=== PATIENT | female | born 1960 | race Caucasian/White ===

== ENCOUNTER → 2020-04-07 13:32 | Outpatient (CLI) | payer BC, SELFPAY ==
--- NOTE | ~2020-04-07 | MM_ITS ---
EXAMINATION: MM screening sharda BI w niko HISTORY: Screening TECHNIQUE: Craniocaudal and mediolateral oblique 3-D tomosynthesis images were obtained and synthetic 2-D images were generated. CAD analysis was submitted and interpreted. COMPARISON: Comparison to multiple prior studies sequentially, with oldest reviewed study dated 11/12. BREAST PARENCHYMAL COMPOSITION: There are scattered areas of fibroglandular density. FINDINGS: There is no evidence of suspicious mass, calcification, or architectural distortion to sugg est malignancy in either breast. There has been no suspicious interval change. IMPRESSION: 1. No mammographic evidence of malignancy. 2. Recommend routine screening mammography in one year. BI-RADS Category 1: Negative Reviewed, dictated and finalized at location A. 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
== END ==
PROVIDERS: PCP Family Medicine; Visit Provider Family Medicine
DX: Z12.31 Encounter for screening mammogram for malignant neoplasm of breast (principal)
CPT/HCPCS: 77063; 77067

== ENCOUNTER → 2020-08-21 08:00 | Outpatient (CLI) | payer BC, SELFPAY ==
--- NOTE | ~2020-08-21 | US_ITS ---
US abdomen complete DATE: 08/21/2020 08:30 INDICATION: Abnormal liver enzymes. Chemical hepatitis. Abdominal bloating. TECHNIQUE: Real-time imaging and Doppler analysis of the abdomen COMPARISON: None FINDINGS: Inferior vena cava is unremarkable. Normal caliber of the abdominal aorta. The pancreas is partially obscured by bowel gas and not optimally evaluated; consider CT examination. No hepatic space-occupying mass lesion is evident. Normal hepatopedal portal venous flow direction. Common bile duct measures up to 7 to 8 mm, which is borderline. No gallstones or gallbladder wall thi ckening. Negative sonographic Mistry's sign. Right kidney measures 8.6 cm length, left kidney 9.6 cm. No renal mass lesion or hydronephrosis is ev ident. Normal splenic size. IMPRESSION: Negative gallbladder Common bile duct measures 7 to 8 mm, which is borderline or mildly dilated. Recommend correlation wit h serum bilirubin level. Pancreas is not optimally evaluated due to interference from bowel gas. Reviewed, dictated and finalized at Location A. Reviewed, dictated and finalized at location A. IMPRESSION: Negative gallbladder Common bile duct measures 7 to 8 mm, which is borderline or mildly dilated. Rec ommend correlation with serum bilirubin level. Pancreas is not optimally evaluated due to interference from bowel gas.
== END ==
DX: K71.6 Toxic liver disease with hepatitis, not elsewhere classified (principal); R74.8 Abnormal levels of other serum enzymes; R14.0 Abdominal distension (gaseous)
CPT/HCPCS: 76700

== ENCOUNTER → 2021-07-06 08:28 | Outpatient (CLI) | payer BC, SELFPAY ==
--- NOTE | ~2021-07-06 | US_ITS ---
EXAMINATION: US abdomen complete DATE: 07/06/2021 08:49 INDICATION: Left lower quadrant abdominal pain. Abnormal levels of serum enzyme. TECHNIQUE: Multiple grayscale and Doppler ultrasound images of the abdomen were obtained. COMPARISON: Abdomen ultrasound 08/21/2020 FINDINGS: Abdominal aorta is normal in caliber. Inferior vena cava is normal. The visualized portions of the head and body of the pancreas are normal. The liver is normal without focal lesion. No liver surface nodularity. There is normal flow in main portal vein. The gallbladder is normal in size and c ontains sludge. No gallstones or gallbladder wall thickening. There was no sonographic Mistry sign. T he common duct is dilated to 8 mm. Right kidney measures 8.7 x 3.6 x 4.4 cm. Left kidney measures 8.6 x 4.2 x 4.6 cm. The spleen is normal in size. IMPRESSION: 1. Mildly dilated common duct, stable from 08/21/2020. 2. Gallbladder sludge. No evidence of acute cholecystitis. 3. Mild atrophy of the kidneys. Reviewed, dictated and finalized at location A. 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
== END ==
DX: K83.8 Other specified diseases of biliary tract (principal); R74.8 Abnormal levels of other serum enzymes; R10.32 Left lower quadrant pain
CPT/HCPCS: 76700

== ENCOUNTER → 2021-07-22 10:09 | Outpatient (CLI) | payer BC, SELFPAY ==
--- NOTE | ~2021-07-22 | MM_ITS ---
EXAMINATION: MM screening sharda BI w niko HISTORY: Screening mammogram TECHNIQUE: Craniocaudal and mediolateral oblique 3-D tomosynthesis images were obtained and synthetic 2-D images were generated. CAD analysis was submitted and interpreted. COMPARISON: 04/07/2020, 01/23/2019 bilateral screening mammogram examinations 02/04/2019 diagnostic right mammogram and limited right breast ultrasound BREAST PARENCHYMAL COMPOSITION: There are scattered areas of fibroglandular density. FINDINGS: There is no evidence of suspicious mass, calcification, or architectural distortion to sugg est malignancy in either breast. There has been no suspicious interval change. IMPRESSION: 1. No mammographic evidence of malignancy. 2. Recommend routine screening mammography in one year. BI-RADS Category 1: Negative Reviewed, dictated and finalized at location A.
== END ==
PROVIDERS: Visit Provider Family Medicine
DX: Z12.31 Encounter for screening mammogram for malignant neoplasm of breast (principal)
CPT/HCPCS: 77063; 77067

== ENCOUNTER → 2022-03-07 12:44 | Outpatient (CLI) | payer BC, SELFPAY ==
--- NOTE | ~2022-03-07 | US_ITS ---
EXAMINATION: US thyroid DATE: 03/07/2022 13:17 INDICATION: Nodular thyroid, cervical lymphadenopathy. TECHNIQUE: Multiple ultrasound images of the thyroid were obtained. COMPARISON: None. FINDINGS: The right thyroid lobe measures 4.3 x 1.4 x 1.2 cm. The left thyroid lobe measures 3.8 x 0.7 x 1.0 c m. There is heterogeneous echotexture and echogenicity throughout the thyroid gland. No discrete nod ules identified. Normal vascular flow is present. IMPRESSION: 1. Heterogeneous thyroid parenchyma. 2. No focal nodule detected. Reviewed, dictated and finalized at location K. 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
== END ==
PROVIDERS: PCP Family Medicine
DX: E04.2 Nontoxic multinodular goiter (principal); L04.0 Acute lymphadenitis of face, head and neck
CPT/HCPCS: 76536

== ENCOUNTER → 2022-08-22 09:14 | Outpatient (CLI) | payer BC, SELFPAY ==
--- NOTE | ~2022-08-22 | US_ITS ---
EXAMINATION: US abdomen limited DATE: 08/22/2022 09:34 INDICATION: Unspecified abdominal pain. TECHNIQUE: Multiple grayscale and Doppler ultrasound images of the abdomen were obtained. COMPARISON: Ultrasound 07/06/2021 FINDINGS: The pancreas is obscured by bowel gas. The liver is normal without focal lesion. There is n ormal flow in main portal vein. The gallbladder is normal in size. No gallstones or gallbladder wall thickening. There was no sonographic Mistry sign. The common duct is mildly dilated and measures 7 mm . IMPRESSION: 1. Chronic mild dilatation of the common duct. Reviewed, dictated and finalized at location A.
== END ==
PROVIDERS: PCP Family Medicine; Visit Provider Physician Assistant Medical
DX: R10.9 Unspecified abdominal pain (principal)
CPT/HCPCS: 76705

== ENCOUNTER → 2022-09-06 08:23 | Outpatient (CLI) | payer BC, SELFPAY ==
--- NOTE | ~2022-09-06 | XR_ITS ---
XR abdomen/kub 1V 09/06/2022 08:42 INDICATION: Left flank pain TECHNIQUE: KUB COMPARISON: None FINDINGS: Bowel gas pattern is normal. Moderate colonic fecal loading. There is no evidence of free a ir, mass, organomegaly, ascites or obstruction. No abnormal calculi are seen. The bones appear inta ct. IMPRESSION: 1: No acute abdominal abnormality identified. Reviewed, dictated and finalized at location L.
--- NOTE | ~2022-09-06 | CT_ITS ---
Non-contrast CT scan of the Abdomen and Pelvis Clinical indication: Left flank pain Technique: 2.5 mm axial scans were obtained through the abdomen and pelvis without intravenous or or al contrast. Dose reduction technique was used on this scan by utilizing automated exposure control a nd iterative reconstruction technique. The dose-length product (DLP) was 278.76 mGy-cm. Findings: Images through the lung bases reveal no abnormalities. There is no evidence of renal or ureteral calculi. The kidneys and the ureters are nondilated. The liver, spleen, pancreas, gallbladder, and adrenals appear normal. There is no aortic aneurysm. There is no evidence of bowel obstruction. Normal appendix. Images through the pelvis were performed. There is no evidence of ascites or lymphadenopathy. Urinary bladder unremarkable. No adnexal mass evident. No ascites. Impression: No significant abnormality seen. Reviewed, dictated and finalized at [facility]. Impression: No significant abnormality seen.
== END ==
PROVIDERS: PCP Family Medicine; Visit Provider Nurse Practitioner Family
DX: R10.9 Unspecified abdominal pain (principal)
CPT/HCPCS: 74018; 74176

== ENCOUNTER → 2022-10-13 10:23 | Outpatient (CLI) | payer BC, SELFPAY ==
--- NOTE | ~2022-10-13 | MM_ITS ---
EXAMINATION: MM screening sharda BI w niko HISTORY: Screening mammogram TECHNIQUE: Craniocaudal and mediolateral oblique 3-D tomosynthesis images were obtained and synthetic 2-D images were generated. CAD analysis was submitted and interpreted. COMPARISON: 07/18/2021, 04/07/2020 bilateral screening mammogram examinations BREAST PARENCHYMAL COMPOSITION: There are scattered areas of fibroglandular density. FINDINGS: There is no evidence of suspicious mass, calcification, or architectural distortion to sugg est malignancy in either breast. There has been no suspicious interval change. IMPRESSION: 1. No mammographic evidence of malignancy. 2. Recommend routine screening mammography in one year. BI-RADS Category 1: Negative Reviewed, dictated and finalized at location A.
== END ==
PROVIDERS: PCP Family Medicine
DX: Z12.31 Encounter for screening mammogram for malignant neoplasm of breast (principal)
CPT/HCPCS: 77063; 77067

== ENCOUNTER 2023-09-28 09:14 | Outpatient (CLI) | payer BC, SELFPAY ==
--- NOTE | ~2023-09-28 | US_ITS ---
Abdominal Sonogram: Real-time sonographic imaging of the abdomen was performed. Clinical History: Abnormal liver enzymes Findings: The liver appears normal with no evidence of mass lesion or bile duct dilatation. Main por brandon vein demonstrates normal direction of flow. The spleen is normal in size without evidence of foca l lesion. The gallbladder is well distended, and appears normal with no evidence of gallstone or wal l thickening. The common bile duct measures 7 mm. The visualized pancreas, aorta, and IVC are unrema rkable. The right kidney measures 9.4 cm in length and the left kidney measures 9.3 cm. There is no hydronephrosis or renal calculus. Impression: Unremarkable abdominal ultrasound. Reviewed, dictated and finalized at location . Impression: Unremarkable abdominal ultrasound.
== END 2023-09-28 09:15 ==
PROVIDERS: PCP Family Medicine
DX: R74.8 Abnormal levels of other serum enzymes (principal); R94.4 Abnormal results of kidney function studies
CPT/HCPCS: 76700

== ENCOUNTER 2023-11-07 02:46 | Day surgery (SDC) | payer BC, SELFPAY ==
[2023-10-26 09:52] VITALS: BMI 22.3
[2023-11-07 07:09] VITALS: BP 138/78; PULSE 82; RESP 16; TEMP 36.1; O2SAT 99
[2023-11-07] MEDS: LACTATED RINGERS 1,000 ML 150 ML IV CONT (07:23)
--- NOTE | 2023-11-07 07:39 | WPDANESEPPF ---
Anes - Initial Pre Proc Eval Procedure: Operation Date: 11/07/23 08:30 Proposed Procedures p Screening Colonoscopy - Brett Bhatt DO Date/Time: 11/07/23 07:39 Surgeon: Brett Bhatt DO Pre Op Diagnosis: neoplasm screening Patient Data Age: 63 Gender: F Height: 1.63 m Weight: 58 kg Last Vital Signs Temp 97 F L 11/07/23 07:09 Pulse 82 11/07/23 07:09 Resp 16 11/07/23 07:09 BP 138/78 11/07/23 07:09 Pulse Ox 99 11/07/23 07:09 O2 Del Method Room Air 11/07/23 07:09 Allergies Allergy/AdvReac Type Severity Reaction Status Date / Time Penicillins Allergy Unknown unknown Verified 11/07/23 07:08 Sulfa (Sulfonamide Allergy Unknown unknown Verified 11/07/23 07:08 Antibiotics) Home Medications Medication Instructions Recorded Confirmed Type levothyroxine 50 mcg tablet 50 mcg PO DAILY #30 tabs 08/21/23 10/26/23 Rx ergocalciferol (vitamin D2) 1,250 1,250 PO 10/26/23 History mcg (50,000 unit) capsule (Vitamin D2) potassium chloride 10 mEq 10 meq PO DAILY 10/26/23 10/26/23 History tablet,extended release(part/cryst) Patient hx anesthesia problems: none Family hx anesthesia problems: none Results Review: All pre-operative results and documents have been reviewed as part of the pre-operative evaluation. [facility] Past Medical History Medical History Colon cancer screening Elevated liver enzymes Hypothyroidism Metatarsalgia of left foot Family History Family History Mother Diabetes mellitus Family history of hypercholesterolemia Hypertension Family history of pancreatic cancer, Onset Age: 90 Father Family history of hypercholesterolemia Family history of coronary artery disease Other Family history of cardiovascular disease Family history of malignant neoplasm Social History Social History Smoking status: Never smoker Alcohol intake: never Substance use: never Substance use type: does not use Lack of Transportation: No Lack of Food: Never True Current Housing: I Have Housing Concerned About Future Housing: No Difficulty Paying Gas/Electric Bills: No Difficulty Paying for Meds: No Currently Unemployed: No Education: High School Diploma/GED Difficulty w/ Childcare or Family Care: No Living arrangements: with family Spiritual care concerns: No Agree to blood products: Yes Anes - Eval Final PreProcedure Day of Procedure 11/07/23 07:39 Patient weight: normal Heart: regular rate and rhythm Lungs: clear to auscultation Airway: Mallampati scale class II Neurological: alert and oriented Last oral intake: >/= 8 hours ASA classification: II Emergent: no Anesthetic plan: proceed Anesthesia type and monitoring: general GIVS and standard monitoring Results Review: All pre-operative results and documents have been reviewed as part of the pre-operative evaluation. Informed Consent: The patient's anesthetic plan and its attendant risks and benefits were discussed with the patient/family/POA. Questions were solicited and answers provided to the satisfaction of the patient/family/POA.
--- NOTE | 2023-11-07 08:50 | PM.IMHP ---
H&P: HPI History of Present Illness Date/Time: 11/07/23 08:50 Chief Complaint: Screening for colorectal cancer Narrative: 63 yo woman presents for colonoscopy. Last done 20 years ago. Denies fam hx colon cancer. Denies hematochezia or melena. Review of Systems Review of Systems: All systems reviewed & are unremarkable except as noted in HPI and below Constitutional: Constitutional: Denies chills, Denies fever(s), Denies headache(s) and Denies weight loss Eyes: Eyes: Denies change in vision ENT: Denies dizziness, Denies headache(s), Denies neck mass and Denies throat swelling Cardiovascular: Cardiovascular: Denies chest pain, Denies lightheadedness and Denies dyspnea Respiratory: Respiratory: Denies cough, Denies dyspnea and Denies wheezing Gastrointestinal: Gastrointestinal: Denies abdominal pain, Denies change in bowel habits, Denies nausea and Denies vomiting Genitourinary: Genitourinary: Denies hematuria and Denies dysuria Musculoskeletal: Musculoskeletal: Reports as per HPI Integumentary/Breasts: Skin/Breast: Reports as per HPI Neurologic: Denies dizziness and Denies headache(s) Allergic/Immunologic: Allergic/Immunologic: Denies throat swelling and Denies wheezing [facility] Past Medical History Medical History Colon cancer screening Elevated liver enzymes Hypothyroidism Metatarsalgia of left foot Family History Family History Mother Diabetes mellitus Family history of hypercholesterolemia Hypertension Family history of pancreatic cancer, Onset Age: 90 Father Family history of hypercholesterolemia Family history of coronary artery disease Other Family history of cardiovascular disease Family history of malignant neoplasm Social History Social History Smoking status: Never smoker Alcohol intake: never Substance use: never Substance use type: does not use Lack of Transportation: No Lack of Food: Never True Current Housing: I Have Housing Concerned About Future Housing: No Difficulty Paying Gas/Electric Bills: No Difficulty Paying for Meds: No Currently Unemployed: No Education: High School Diploma/GED Difficulty w/ Childcare or Family Care: No Living arrangements: with family Spiritual care concerns: No Agree to blood products: Yes Meds Home Medications and Allergies Home Medications Medication Instructions Recorded Confirmed Type levothyroxine 50 mcg tablet 50 mcg PO DAILY #30 tabs 08/21/23 10/26/23 Rx ergocalciferol (vitamin D2) 1,250 1,250 PO 10/26/23 History mcg (50,000 unit) capsule (Vitamin D2) potassium chloride 10 mEq 10 meq PO DAILY 10/26/23 10/26/23 History tablet,extended release(part/cryst) Allergies Allergy/AdvReac Type Severity Reaction Status Date / Time Penicillins Allergy Unknown unknown Verified 11/07/23 07:08 Sulfa (Sulfonamide Allergy Unknown unknown Verified 11/07/23 07:08 Antibiotics) Vital Signs Vital Signs - 24 hr 11/07/23 07:09 Temperature 36.1 C L Pulse Rate 82 Respiratory Rate 16 Blood Pressure 138/78 Pulse Oximetry 99 Oxygen Delivery Room Air Exam Const: General: no acute distress and alert Orientation/consciousness: patient oriented x3 HENMT: Head: normocephalic and atraumatic Ears: hearing grossly normal bilaterally Face/Nose/Sinus: Normal nares present Mouth: Yes Normal oral and palatal mucosa present Eyes: Periorbital: periorbital findings normal Sclera: sclerae normal EOM: EOMs intact bilaterally Neck: Neck: normal visual inspection, no lymphadenopathy and trachea midline Chest: Chest palpation & inspection: normal inspection of the chest Resp: Effort & Inspection: normal respiratory effort Auscultation: clear to auscultation bilaterally Cardio: Jugular venous distensio
[2023-11-07 09:12] VITALS: BP 116/86; PULSE 103; RESP 21; O2SAT 100
[2023-11-07 09:22] VITALS: BP 123/76; PULSE 78; RESP 18; O2SAT 100
[2023-11-07 09:32] VITALS: BP 120/76; PULSE 78; RESP 18; O2SAT 100
== END 2023-11-07 09:40 | disposition home or self-care (01) ==
PROVIDERS: PCP Family Medicine; Visit Provider Surgery
PROC: 0DJD8ZZ Inspection of Lower Intestinal Tract, Via Natural or Artificial Opening Endoscopic (ICD-10-PCS; CPT 45378; principal; 2023-11-07 08:30)
DX: Z12.11 Encounter for screening for malignant neoplasm of colon (principal); K57.30 Diverticulosis of large intestine without perforation or abscess without bleeding; E03.9 Hypothyroidism, unspecified
CPT/HCPCS: 45378; J2704; J7120

== ENCOUNTER 2023-12-04 12:23 | Outpatient (CLI) | payer BC, SELFPAY ==
--- NOTE | ~2023-12-04 | MM_ITS ---
EXAMINATION: MM screening sharda BI w niko HISTORY: Screening TECHNIQUE: Craniocaudal and mediolateral oblique 3-D tomosynthesis images were obtained and synthetic 2-D images were generated. CAD analysis was submitted and interpreted. COMPARISON: Comparison to multiple prior studies sequentially, with oldest reviewed study dated 11/12. BREAST PARENCHYMAL COMPOSITION: Not dense: There are scattered areas of fibroglandular density. FINDINGS: There is no evidence of suspicious mass, calcification, or architectural distortion to sugg est malignancy in either breast. There has been no suspicious interval change. IMPRESSION: 1. No mammographic evidence of malignancy. 2. Recommend routine screening mammography in one year. BI-RADS Category 1: Negative Reviewed, dictated and finalized at location B.
== END 2023-12-04 12:24 ==
PROVIDERS: PCP Family Medicine; Visit Provider Family Medicine
DX: Z12.31 Encounter for screening mammogram for malignant neoplasm of breast (principal)
CPT/HCPCS: 77063; 77067

== ENCOUNTER 2024-07-23 07:44 | Outpatient (CLI) | payer BC, SELFPAY ==
--- NOTE | ~2024-07-23 | US_ITS ---
EXAMINATION: US abdomen complete DATE: 07/23/2024 08:31 INDICATION: Abn pancreatic enzymes TECHNIQUE: Multiple grayscale and Doppler ultrasound images of the abdomen were obtained. COMPARISON: 09/28/2023; CT abdomen pelvis 09/06/2022. FINDINGS: The pancreas was poorly visualized. The liver is normal with normal echogenicity and echote xture. No surface nodularity. Normal hepatopetal flow in the main portal vein. The gallbladder is nor mal with no abnormal wall thickening, pericholecystic fluid or stones. The common bile duct measures 8 mm. There was no sonographic Mistry sign. Aorta poorly visualized. The visualized portions of the i nferior vena cava are normal. The right kidney measures 9.8 x 4.6 x 5.0 cm. The left kidney measures 8.9 x 4.3 x 4.8 cm. The kidney s demonstrate normal parenchymal echogenicity. There is no hydronephrosis. The spleen is normal in ap pearance and measures 7.5 cm. IMPRESSION: The pancreas and aorta were poorly visualized in this examination. 8 mm common bile duct, correlate w ith biliary labs. Consider pancreatic protocol CT or MRI without and with contrast for further evalua tion. Reviewed, dictated and finalized at location K. IMPRESSION: The pancreas and aorta were poorly visualized in this examination. 8 mm common bile duct, correlate with biliary labs. Consider pancreatic protocol CT or MRI without and with contrast for further evaluation.
== END 2024-07-23 07:45 | disposition home or self-care (01) ==
LOC: MICIMG 07:45
PROVIDERS: PCP Family Medicine
DX: R74.8 Abnormal levels of other serum enzymes (principal); K83.8 Other specified diseases of biliary tract; Z80.0 Family history of malignant neoplasm of digestive organs
CPT/HCPCS: 76700

== ENCOUNTER 2024-12-03 08:36 | Outpatient (CLI) | payer BC, SELFPAY ==
--- NOTE | ~2024-12-03 | MR_ITS ---
MRI of the abdomen: Clinical indication: Other specified disease of biliary tract. Technique: Coronal SSFSE ARC, WATER:coronal LAVA-FLEX, Coronal 2D FIESTA FatSat, Axial SSFSE BH ARC, Axial 3D DualEcho BH, Axial SSFSE-IR, Axial DWI b=500, Axial 2D FIESTA FatSat, pre and dynamic postco ntrast Axial LAVA ARC, postcontrast Coronal In and Opposed phase LAVA FLEX. Following intravenous adm inistration of 12 cc MultiHance gadolinium, T1-weighted fat-sat imaging was performed in the axial an d coronal planes. Findings: Gallbladder is unremarkable. The common bile duct is mildly dilated proximally to 9 mm. The re is smooth distal tapering.. No filling defects are seen within the CBD. No evidence of intrahepati c biliary ductal dilatation. The pancreatic duct is normal in size. Liver, spleen, pancreas, adrenals, kidneys appear normal. The aorta and the paraaortic regions appear normal. No abnormal postcontrast enhancement seen. Impression: Mildly dilated common bile duct, nonspecific. Correlate with LFTs. No other significant findings. Reviewed, dictated and finalized at [facility]. Impression: Mildly dilated common bile duct, nonspecific. Correlate with LFTs. No other significant findings.
--- OUTSIDE RECORDS SUMMARY | 2024-12-03 08:43 | XMS_ITS | Clinical Summary ---
Author Organization [facility] Address [address] 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 This disclosure is being madepursuant to the Care Everywhere program and may not contain all information available regarding this patient. Last updated 18.[facility] Allergies Active Allergy Reactions Criticality Noted Date Comments Penicillins Unknown 07/27/2018 Medications * Be aware that medications may not be up to date on this document. Alwaysverify current medications with the patient. levothyroxine (SYNTHROID) 50 MCG tablet Take 50 mcg by mouth daily before breakfast Active Cholecalciferol (VITAMIN D PO) Activ e Family History Medical History Relation Name Comments Other - Cardiac Father from he art disease at age 89 Cancer - Pancreatic Mother Relation Name Status Comments Father Mother Social History Tobacco Use Types Packs/Day Years Used Date Smoking Tobacco: Never Smokeless Tobacco: Never Comments No Sex and Gender Information Value Date Recorded Sex Assigned at Not on file Legal Sex Female 10:53 AM CDT Gender Identity Not on file Sexual Orientation Not on file Last Filed Vital Signs Vital Sign Reading Time Taken Comments Blood Pressure 110/66 07/31/2018 11:19 AM CDT Pulse 82 07/31/2018 11:19 AM CDT Temperature 36.7 C (98.1 F) 07/31/2018 11:19 AM CDT Respiratory Rate 16 07/31/2018 11:19 AM CDT Oxygen Saturation 98% 07/31/2018 11:19 AM CDT Inhaled Oxygen Concentration - - Weight 59 kg (130 lb) 07/31/2018 11:19 AM CDT Height 162.6 cm (5' 4) 07/31/2018 11:19 AM CDT Body Mass Index 22.31 07/31/2018 11:19 AM CDT Plan of Treatment Health Maintenance Due Date Last Done Comments BONE DENSITY TESTING 1959 COLOGUARD (AGES 45-75) - COL ON CA SCREENING 1959 COLON MONITORING 1959 COLONOSCOPY - COLON CA SCREENING 1959 CT COLONOGRAPHY - COLON CA SCREENING 1959 Colorectal Cancer Screening 1959 FIT - COLON CA SCREENING 1959 FLEX SIG - COLON CA SCREENING 1959 LIPID TESTING 1959 MAMMOGRAM 1959 HIV SCREENING 08/09/1974 HEPATITIS C SCREENING 08/05/1977 DTAP/TDAP/TD VACCINES (1 - Tdap) 08/09/1978 PNEUMOCOCCAL VACCINE 50+ (1 of 1 - PCV) 08/09/2009 ZOSTER VACCINE (1 of 2) 08/09/2009 COVID-19 VACCINE (1 - 2023-2 5 season) 2023 DEPRESSION SCREENING 05/01/2024 INFLUENZA VACCINE (#1) 2024 Respiratory Syncytial Virus (RSV) Vaccine Pt: or over 60 yrs (1 - 1-dose 75+ series) 08/09/2034 HEPATITIS B VACCINE Aged Out No longe r eligible based on patient's age to complete this topic HIB VACCINE Aged Out No longer eligi ble based on patient's age to complete this topic HPV VACCINE Aged Out No longer eligi ble based on patient's age to complete this topic MENINGOCOCCAL (Group B) VACC INE SHARED DECISION-MAKING Aged Out No longer eligibl e based on patient's age to complete this topic MENINGOCOCCAL GROUPS A/C/Y/W VACCINE Aged Out No longer eligible b ased on patient's age to complete this topic
--- OUTSIDE RECORDS SUMMARY | 2024-12-03 08:43 | XMS_ITS | Clinical Summary ---
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 90 Tablet 10/13/2023 6:55 PM CDT 4 Active levothyroxine 50 mcg tablet Take 1 Tablet (50 mcg) by mouth daily. 30 Tablet 4 Active clobetasoL (TEMOVATE) 0.05 % Cream APPLY EXTERNALLY NEEDED. 45 Gram 12 02/05/2024 11:00 AM CDT 4 Active levothyroxine 50 mcg tablet Take 1.5 Tablets (75 mcg) by mouth daily. 135 Tablet 3 11/20/2024 6:02 PM CDT 5 Active potassium CHLORIDE (KLOR-CON) 10 mEq Extended Release tablet Take 1 Tablet (10 mEq) by mouth daily. 90 Tablet 2 11/20/2024 6:02 PM CDT 5 Active ergocalciferol (Vitamin D2) 50,000 unit capsule Take 1 Capsule (50,000 Units) by mouth every 7 days. 12 Capsule 3 11/20/2024 6:02 PM CDT 5 Active ergocalciferol (VITAMIN D2) 50,000 unit capsule Take 1 Capsule (50,000 Units) by mouth every 7 days. 12 Capsule 09/19/2024 3:08 PM CDT 4 11/20/19 25 Discontinu ed(Reorder ) Encounters Date Type Department Care Team Description 11/13/2024 External Device Data [facility] ABSTRACTION Provider, Abstract from Last 3 Months Social History Tobacco Use Types Packs/Day Years Used Date Smoking Tobacco: Never Assessed Comments Unknown Sex and Gender Information Value Date Recorded Sex Assigned at Not on file Legal Sex Female 3:27 PM CDT Gender Identity Not on file Sexual Orientation Not on file Plan of Treatment Health Maintenance Due Date Last Done Comments DTAP/TDAP/TD VACCINES (1 - Tdap) 08/09/1978 BREAST CANCER SCREENING 1999 COLORECTAL SCREENING 08/09/2004 Colorectal Cancer Screening 08/09/2004 FIT-DNA Q 3 years 08/09/2004 FIT/FOBT Q 1 year 08/09/2004 Flex Sig/CT Colonography Q 5 years 08/09/2004 PNEUMOCOCCAL VACCINE 50+ YEARS (1 of 1 - PCV) 08/10/19 10 ZOSTER VACCINE (1 of 2) 08/09/2009 OSTEOPOROSIS SCREENING 08/09/2024 INFLUENZA VACCINE (#1) 2024 RSV VACCINE (60+ or ) (1 - 1-dose 75+ series) 08/09/2034 [place] [address] RX [employer] (INTERNAL) [facility] Commercial
== END 2024-12-03 08:37 | disposition home or self-care (01) ==
PROVIDERS: PCP Family Medicine; Visit Provider Nurse Practitioner
DX: K83.8 Other specified diseases of biliary tract (principal); R74.8 Abnormal levels of other serum enzymes
CPT/HCPCS: 74183; 76376; A9577

== ENCOUNTER 2025-03-24 15:35 | Outpatient (CLI) | payer BC, SELFPAY ==
--- NOTE | ~2025-03-24 | MM_ITS ---
EXAMINATION: MM screening [facility] BI w niko HISTORY: Screening TECHNIQUE: Craniocaudal and mediolateral oblique 3-D tomosynthesis images were obtained and synthetic 2-D images were generated. CAD analysis was submitted and interpreted. COMPARISON: Comparison to multiple prior studies sequentially, with oldest reviewed study dated 01/23/2019. BREAST PARENCHYMAL COMPOSITION: Not dense: There are scattered areas of fibroglandular density. FINDINGS: There is no evidence of suspicious mass, calcification, or architectural distortion to suggest malignancy in either breast. There has been no suspicious interval change. IMPRESSION: 1. No mammographic evidence of malignancy. 2. Recommend routine screening mammography in one year. BI-RADS Category 1: Negative Reviewed, dictated and finalized at location [facility] [employer]
== END 2025-03-24 15:36 | disposition home or self-care (01) ==
PROVIDERS: Visit Provider Student in an Organized Health Care Education/Training Program
DX: Z12.31 Encounter for screening mammogram for malignant neoplasm of breast (principal)
CPT/HCPCS: 77063; 77067